=== PATIENT | female | born 1995 | race Caucasian/White ===

== ENCOUNTER 2020-09-23 11:58 | Outpatient (REF) | payer OTHER, SELFPAY | END 2020-09-23 11:59 | disposition home or self-care (01) | LOC: HO.HMGCLDS 11:58 | PROVIDERS: Visit Provider Internal Medicine | DX: Z20.828 Contact with and (suspected) exposure to other viral communicable diseases (principal) | CPT/HCPCS: C9803; U0003 ==

== ENCOUNTER 2024-12-01 13:22 | Emergency (ER) | payer OTHER, SELFPAY ==
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
--- NOTE | ~2024-12-01 | CT_ITS ---
EXAMINATION: CT CERVICAL SPINE WITHOUT CONTRAST CLINICAL INFORMATION: Head trauma, neck pain. COMPARISON: None available. TECHNIQUE: Spiral CT imaging of the cervical spine performed in axial plane without contrast. Multiplanar reformatted images were constructed from the axial data set. This CT examination was performed using dose optimization techniques as appropriate, variously including the following: *Automated exposure control *Adjustment of mA and/or kV according to patient size (this includes techniques or standardized protocols for targeted exams where dose is matched to indication/reason for exam; i.e. extremities or head) *Use of iterative reconstruction technique FINDINGS: CORONAL ALIGNMENT: -Normal. SAGITTAL ALIGNMENT: -Straightening of the normal lordosis. No subluxations. C1-C2 AND CRANIOCERVICAL JUNCTION: -Intact and aligned. VERTEBRAL BODIES AND FACETS: -No fracture, traumatic subluxation, compression deformity, or suspicious bone lesion. -Normal facet alignment. DISCS: -Preserved and normal. PREVERTEBRAL AND PARAVERTEBRAL SOFT TISSUES: -Normal. -Thyroid gland is normal. LUNG APICES: -Clear bilaterally. CT/CT cervical spine wo IV con IMPRESSION: 1. No CT evidence of acute cervical spine fracture or injury. Electronically signed by: Coy Quintero MD 12/01/2024 03:05 PM [facility]
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
[2024-12-01 13:42] VITALS: BP 123/85; PULSE 80; RESP 16; TEMP 36.4; O2SAT 100; BMI 22.7
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
[2024-12-01 16:38] VITALS: BP 137/84; PULSE 68; RESP 20; TEMP 36.6; O2SAT 100
[2024-12-01 16:56] VITALS: BP 137/84; PULSE 68; RESP 20; TEMP 36.6; O2SAT 100
== END 2024-12-01 16:57 | disposition home or self-care (01) ==
PROVIDERS: Emergency Provider Emergency Medicine Emergency Medical Services
DX: S09.90XA Unspecified injury of head, initial encounter (principal); Y04.2XXA Assault by strike against or bumped into by another person, initial encounter; Y93.89 Activity, other specified; Y92.219 Unspecified school as the place of occurrence of the external cause; Y99.0 Civilian activity done for income or pay
CPT/HCPCS: 70450; 70486; 72125; 99282; 99284

== ENCOUNTER → 2024-12-01 13:48 | Outpatient (BNV) | payer OTHER, SELFPAY | PROVIDERS: Visit Provider Radiology Diagnostic Radiology | DX: M54.2 Cervicalgia (principal); S00.93XA Contusion of unspecified part of head, initial encounter | CPT/HCPCS: 70450; 70486; 72125 ==

== ENCOUNTER → 2024-12-04 14:09 | Outpatient (BNVA) | payer OTHER, SELFPAY | PROVIDERS: Visit Provider Physician Assistant Medical | DX: S00.93XA Contusion of unspecified part of head, initial encounter (principal); S16.1XXA Strain of muscle, fascia and tendon at neck level, initial encounter; Y04.2XXA Assault by strike against or bumped into by another person, initial encounter | CPT/HCPCS: 99203 ==

== ENCOUNTER → 2024-12-10 08:40 | Outpatient (BNVA) | payer OTHER, SELFPAY | PROVIDERS: Visit Provider Physician Assistant Medical | DX: S00.93XA Contusion of unspecified part of head, initial encounter (principal); S16.1XXA Strain of muscle, fascia and tendon at neck level, initial encounter; Y04.2XXA Assault by strike against or bumped into by another person, initial encounter | CPT/HCPCS: 99213 ==

== ENCOUNTER → 2024-12-17 08:44 | Outpatient (BNVA) | payer OTHER, SELFPAY | PROVIDERS: Visit Provider Physician Assistant Medical | DX: S00.93XD Contusion of unspecified part of head, subsequent encounter (principal); S16.1XXD Strain of muscle, fascia and tendon at neck level, subsequent encounter; Y04.2XXD Assault by strike against or bumped into by another person, subsequent encounter | CPT/HCPCS: 99213 ==

== ENCOUNTER → 2024-12-31 08:51 | Outpatient (BNVA) | payer OTHER, SELFPAY | PROVIDERS: Visit Provider Physician Assistant Medical | DX: S00.93XD Contusion of unspecified part of head, subsequent encounter (principal); S16.1XXD Strain of muscle, fascia and tendon at neck level, subsequent encounter; Y04.2XXD Assault by strike against or bumped into by another person, subsequent encounter; R51.9 Headache, unspecified | CPT/HCPCS: 99213 ==

== ENCOUNTER → 2025-01-18 07:53 | Outpatient (BNVA) | payer OTHER, SELFPAY | PROVIDERS: Visit Provider Physician Assistant Medical | DX: S00.93XD Contusion of unspecified part of head, subsequent encounter (principal); S16.1XXD Strain of muscle, fascia and tendon at neck level, subsequent encounter; Y04.2XXD Assault by strike against or bumped into by another person, subsequent encounter; R51.9 Headache, unspecified; Z02.79 Encounter for issue of other medical certificate | CPT/HCPCS: 99213 ==